=== PATIENT | male | born 1965 | race Caucasian/White ===

== ENCOUNTER 2018-03-03 21:18 | Emergency (ER) | payer BC ==
[2018-03-03 22:00] LABS: MUDS CUTOFF CONCENTRATIONS CUTOFF CONC BELOW:
[2018-03-03 22:22] LABS: AMPHETAMINE SCREEN,URINE NEGATIVE (NEGATIVE); BENZODIAZEPINES SCREEN, URINE NEGATIVE (NEGATIVE); COCAINE SCREEN URINE NEGATIVE (NEGATIVE); METHADONE SCREEN, URINE NEGATIVE (NEGATIVE); METHAMPHETAMINES SCREEN, URINE NEGATIVE (NEGATIVE); OPIATE SCREEN, URINE NEGATIVE (NEGATIVE); OXYCODONE SCREEN, URINE NEGATIVE (NEGATIVE); PROPOXYPHENE SCREEN, URINE NEGATIVE (NEGATIVE); TRICYCLIC ANTIDEPRESSANT,URINE NEGATIVE (NEGATIVE)
[2018-03-03] MEDS ORDERED: LORazepam 0.5 MG TABLET PO STA (22:28)
[2018-03-03] MEDS ORDERED: ONDANSETRON ODT 4 MG TABLET TL STA (22:28)
[2018-03-03 22:46] LABS: BASOPHILS # (AUTO) 0.1 10^3/uL (0.0-0.1); BASOPHILS % (AUTO) 1.3 %; HGB - HEMOGLOBIN 15.5 g/dL (14.0-18.0); LYMPHOCYTES # (AUTO) 0.7 10^3/uL (1.5-3.5); LYMPHOCYTES % (AUTO) 6.6 %; MEAN CORPUSCULAR HEMOGLOBIN 31.6 pg (27.0-31.0); MEAN CORPUSCULAR HGB CONC 34.7 g/dL (32.0-36.0); MEAN PLATELET VOLUME 7.9 fL (7.4-11.4); MONOCYTES # (AUTO) 0.7 10^3/uL (0.0-1.0); MONOCYTES % (AUTO) 6.4 %; NEUTROPHILS # (AUTO) 9.3 10^3/uL (1.5-6.6); NEUTROPHILS % (AUTO) 85.7 %; PLT - PLATELET COUNT 225 10^3/uL (130-450); RED CELL DISTRIBUTION WIDTH 14.3 % (12.0-15.0); WHITE BLOOD COUNT 10.9 x10^3/uL (4.8-10.8)
[2018-03-03 22:58] LABS: CREATININE 1.1 mg/dL (0.6-1.2)
[2018-03-04] MEDS ORDERED: diphenhydrAMINE 25 MG CAPSULE PO STA (01:17)
--- NOTE | 2018-03-04 03:21 | ED Physician Documentation ---
PD HPI MHE - Stated complaint Stated Complaint: SI - Chief complaint Chief Complaint: MHE - History obtained from History obtained from: Patient - History of Present Illness Primary symptom: Suicidal ideation, Depression Timing - onset: Today Contributing factors: Sig other, Substance abuse - ETOH Similar symptoms before: Has not had sx before Recently seen: Not recently seen - Additional information Additional information: Patient is a 52 year old male who has a history of anxiety who is presenting to the emergency department for suicidal ideation. Patient reports that it is about a month away from the year anniversary of when his son commited suicide. Patient states that he has been self medicating with alcohol and tonight he was worried that he might kill himself. patient states that his plan was to use a gun. Review of Systems Constitutional: denies: Fever, Chills Eyes: reports: Reviewed and negative Ears: reports: Reviewed and negative Nose: reports: Reviewed and negative Throat: reports: Reviewed and negative Cardiac: reports: Reviewed and negative Respiratory: reports: Reviewed and negative GI: reports: Reviewed and negative : reports: Reviewed and negative Musculoskeletal: reports: Reviewed and negative Psychiatric: reports: Depressed, Suicidal, Anxiety. denies: Homicidal Immunocompromised: denies: Immunocompromised PD PAST MEDICAL HISTORY - Past Medical History Past Medical History: Yes Psych: Anxiety - Past Surgical History Past Surgical History: Yes HEENT: Tonsil/Adenoidectomy - Allergies Allergies/Adverse Reactions: Allergies Allergy/AdvReac Type Severity Reaction Status Date / Time paroxetine [From Paxil] Allergy Unknown Verified 03/03/18 22:35 - Social History Does the pt smoke?: No Smoking Status: Never smoker Does the pt drink ETOH?: Yes ETOH Use: Beer Does the pt have substance abuse?: No - Immunizations Immunizations: TDAP current <10years - POLST Patient has POLST: No PD ED PE NORMAL - Vitals Vital signs reviewed: Yes - General General: Alert and oriented X 3 - HEENT HEENT: Atraumatic - Neck Neck: Supple, no meningeal sign - Cardiac Cardiac: RRR - Respiratory Respiratory: No respiratory distress - Abdomen Abdomen: Non distended - Derm Derm: Normal color - Extremities Extremities: No deformity - Neuro Neuro: Alert and oriented X 3, No motor deficit, Normal speech Eye Opening: Spontaneous PD ED PE EXPANDED - Psych Psych: Depressed, Suicidal, Tearful, Anxious Results - Vitals Vitals: Vital Signs - 24 hr 03/03/18 03/03/18 03/04/18 21:33 22:28 02:21 Temperature 36.7 C Heart Rate 100 102 H 88 Respiratory 18 18 17 Rate Blood Pressure 150/107 H 142/68 H 160/81 H O2 Saturation 100 99 99 Oxygen O2 Source Room air - Labs Labs: Laboratory Tests 03/03/18 03/03/18 03/03/18 21:46 22:30 22:30 WBC 10.9 H RBC 4.90 Hgb 15.5 Hct 44.5 MCV 91.0 MCH 31.6 H MCHC 34.7 RDW 14.3 Plt Count 225 MPV 7.9 Neut # 9.3 H Lymph # 0.7 L [place] # 0.7 Eos # 0.0 Baso # 0.1 Absolute Nucleated RBC 0.00 Nucleated RBC % 0.0 Sodium 134 L Potassium 3.9 Chloride 93 L Carbon Dioxide 21 Anion Gap 20.0 H BUN 18 Creatinine 1.1 Estimated GFR (MDRD) 71 L Glucose 204 H Calcium 9.0 Urine Opiates Screen NEGATIVE Ur Oxycodone Screen NEGATIVE Urine Methadone Screen NEGATIVE Ur Propoxyphene Screen NEGATIVE Ur Barbiturates Screen NEGATIVE Ur Tricyclics Screen NEGATIVE Ur Phencyclidine Scrn NEGATIVE Ur Amphetamine Screen NEGATIVE U Methamphetamines Scrn NEGATIVE U Benzodiazepines Scrn NEGATIVE Urine Cocaine Screen NEGATIVE U Cannabinoids Screen NEGATIVE Ethyl Alcohol 8.5 PD MEDICAL DECISION MAKING - ED course Complexity details: reviewed old records, reviewed results, re-evaluated patient , considered differential, d/w patient ED course: Patient was seen and examined at beside. labs were drawn and urine was collected. Patient was treated with zofran and ativan for nausea and anxiety. Patient's blood work was unremarkable. Patient did state that he needed help sleeping and was given benadryl 50mg. Patient was medically cleared and voluntary. Patient was signed over to Dr. Keene pending social work evaluation. Departure - Departure Clinical Impression: Depression, Suicidal ideation
[2018-03-04] MEDS ORDERED: ONDANSETRON ODT 4 MG TABLET TL STA (12:31)
[2018-03-04 12:55] VITALS: BP 104/62
--- NOTE | 2018-03-04 14:13 | ED Physician Documentation ---
PD HPI MHE - Stated complaint Stated Complaint: SI - Chief complaint Chief Complaint: MHE PD PAST MEDICAL HISTORY - Past Medical History Past Medical History: Yes Psych: Anxiety - Past Surgical History Past Surgical History: Yes HEENT: Tonsil/Adenoidectomy - Present Medications Home Medications: Ambulatory Orders Medication Instructions Recorded Confirmed Ondansetron Odt [Zofran] 4 mg TL Q6H PRN #10 tablet 03/04/18 - Allergies Allergies/Adverse Reactions: Allergies Allergy/AdvReac Type Severity Reaction Status Date / Time paroxetine [From Paxil] Allergy Unknown Verified 03/03/18 22:35 - Social History Does the pt smoke?: No Smoking Status: Never smoker Does the pt drink ETOH?: Yes ETOH Use: Beer Does the pt have substance abuse?: No - Immunizations Immunizations: TDAP current <10years - POLST Patient has POLST: No Results - Vitals Vitals: Vital Signs - 24 hr 03/03/18 03/03/18 03/04/18 21:33 22:28 02:21 Temperature 36.7 C Heart Rate 100 102 H 88 Respiratory 18 18 17 Rate Blood Pressure 150/107 H 142/68 H 160/81 H O2 Saturation 100 99 99 03/04/18 03/04/18 03/04/18 06:56 11:48 12:51 Temperature 36.5 C Heart Rate 90 99 68 Respiratory 16 18 15 Rate Blood Pressure 150/97 H 182/105 H 104/62 O2 Saturation 97 99 100 Oxygen O2 Source Room air - Labs Labs: Laboratory Tests 03/03/18 03/03/18 03/03/18 21:46 22:30 22:30 WBC 10.9 H RBC 4.90 Hgb 15.5 Hct 44.5 MCV 91.0 MCH 31.6 H MCHC 34.7 RDW 14.3 Plt Count 225 MPV 7.9 Neut # 9.3 H Lymph # 0.7 L [place] # 0.7 Eos # 0.0 Baso # 0.1 Absolute Nucleated RBC 0.00 Nucleated RBC % 0.0 Sodium 134 L Potassium 3.9 Chloride 93 L Carbon Dioxide 21 Anion Gap 20.0 H BUN 18 Creatinine 1.1 Estimated GFR (MDRD) 71 L Glucose 204 H Calcium 9.0 Urine Opiates Screen NEGATIVE Ur Oxycodone Screen NEGATIVE Urine Methadone Screen NEGATIVE Ur Propoxyphene Screen NEGATIVE Ur Barbiturates Screen NEGATIVE Ur Tricyclics Screen NEGATIVE Ur Phencyclidine Scrn NEGATIVE Ur Amphetamine Screen NEGATIVE U Methamphetamines Scrn NEGATIVE U Benzodiazepines Scrn NEGATIVE Urine Cocaine Screen NEGATIVE U Cannabinoids Screen NEGATIVE Ethyl Alcohol 8.5 Departure - Departure Disposition: 01 Home, Self Care Clinical Impression: Suicidal ideation, Prolonged grief reaction Depression Qualifiers: Depression Type: reactive depression Qualified Code(s): F32.9 - Major depressive disorder, single episode, unspecified Condition: Stable Instructions: ED Stress React, ED Grief Reaction Follow-Up: [facility] [Provider Group] Prescriptions: Ondansetron Odt [Zofran] 4 mg TL Q6H PRN #10 tablet PRN Reason: Nausea / Vomiting
== END 2018-03-04 14:30 | disposition home or self-care (01) ==
LOC: ED 21:18
DX: R45.851 Suicidal ideations (principal); F32.9 Major depressive disorder, single episode, unspecified; F43.29 Adjustment disorder with other symptoms
CPT/HCPCS: 36415; 80048; 80306; 80320; 85025; 99283; A9270; Q0162

== ENCOUNTER 2019-04-19 21:37 | Outpatient (CLI) | payer OTHER | END 2019-04-19 21:38 | disposition critical access hospital (66) | LOC: EMS 21:37 | PROVIDERS: ATTEND Surgery | DX: R53.1 Weakness (principal); S09.90XA Unspecified injury of head, initial encounter; R45.851 Suicidal ideations; Z72.89 Other problems related to lifestyle; W19.XXXA Unspecified fall, initial encounter | CPT/HCPCS: A0425; A0429 ==

== ENCOUNTER 2019-04-19 21:55 | Emergency (ER) | payer BC, OTHER ==
[2019-04-19] MEDS ORDERED: TETANUS/DIPHTHERIA/PERTUSSIS 0.5 ML SYRINGE IM ONE (22:07)
[2019-04-19] MEDS ORDERED: FOLIC ACID INJ 1 MG, THIAMINE INJ 100 MG, MAGNESIUM SULFATE 2 GM, MULTIVITAMIN 10 ML in... IV STA ×5 (22:08)
--- NOTE | 2019-04-19 22:11 | ED Physician Documentation ---
History of Present Illness - Stated complaint Stated Complaint: WEAK, ETOH/ - History obtained from History obtained from: Patient - Additonal information Additional information: Patient is a 53-year-old male with history of chronic alcohol use presenting with alcohol intoxication and suicidal ideation. Patient admits to chronic alcohol use had issues with withdrawal in the past, although nonspecific. and states that he has patient denies other recreational drug use. Patient states that over the past several days he has drank "a ton". Patient also admits to suicidal thoughts, specifically cutting himself. Patient notes that his s tressors include familial issues. Patient's son committed suicide several years ago. He and his other son have a strained relationship as he left his son previously. Patient does live with his girlfriend locally and per report, has recently attended an alcohol rehab. Patient has dried blood and superficial wound to his head and reports falling, but denies other details of the incident or loss of consciousness. Patient otherwise denies complaints including headache, vision changes, chest pain, abdominal pain, vomiting, urine or stool changes. No other improving or worsening factors noted. Review of Systems Constitutional: denies: Fever Eyes: denies: Loss of vision Cardiac: denies: Chest pain / pressure Respiratory: denies: Dyspnea Neurologic: reports: Head injury PD PAST MEDICAL HISTORY - Past Medical History Past Medical History: Yes Cardiovascular: Hypertension Psych: Anxiety, Other (Substance abuse) - Past Surgical History Past Surgical History: Yes HEENT: Tonsil/Adenoidectomy - Present Medications Home Medications: Ambulatory Orders Medication Instructions Recorded Confirmed Ondansetron Odt [Zofran] 4 mg TL Q6H PRN #10 tablet 03/04/18 - Allergies Allergies/Adverse Reactions: Allergies Allergy/AdvReac Type Severity Reaction Status Date / Time paroxetine [From Paxil] Allergy Unknown Verified 03/03/18 22:35 - Social History Does the pt smoke?: No Smoking Status: Never smoker Does the pt drink ETOH?: Yes Does the pt have substance abuse?: No - Immunizations Immunizations: TDAP current <10years - POLST Patient has POLST: No PD ED PE NORMAL - Vitals Vital signs reviewed: Yes - General General: Alert and oriented X 3, No acute distress, Well developed/nourished, Other (Tearful, Smells of alcohol) - HEENT HEENT: PERRL, EOMI (No nystagmus. Gross visual acuity intact.). No: Atraumatic (Pinpoint superficial laceration to midline forehead with surrounding dried blood. Otherwise atraumatic with no appreciable swelling or ecchymosis, raccoon eyes, brunson signs, facial bone instability or tenderness.), Moist mucous membranes - Neck Neck: Supple, no meningeal sign, No bony TTP - Cardiac Cardiac: RRR, No murmur - Respiratory Respiratory: No respiratory distress, Clear bilaterally - Abdomen Abdomen: Soft, Non tender, Non distended - Derm Derm: Normal color, Warm and dry, No rash - Extremities Extremities: No deformity, No tenderness to palpate - Neuro Neuro: Alert and oriented X 3, No motor deficit, No sensory deficit - Psych Psych: Other (Intoxicated, tearful, admits to suicidal ideation) Results - Vitals Vitals: Vital Signs - 24 hr 04/19/19 04/20/19 04/20/19 21:59 00:26 04:35 Temperature 37.2 C 37.4 C 36.7 C Heart Rate 97 88 97 Respiratory 18 14 16 Rate Blood Pressure 173/112 H 153/95 H 151/108 H O2 Saturation 99 96 97 Oxygen O2 Source Room air - Labs Labs: Laboratory Tests 04/19/19 04/19/19 04/19/19 22:16 22:16 22:16 WBC 7.2 RBC 5.76 Hgb 17.4 Hct 50.6 MCV 87.9 MCH 30.1 MCHC 34.3 RDW 14.6 Plt Count 301 MPV 7.4 Neut # (Auto) 3.4 Lymph # (Auto) 3.0 [place] # (Auto) 0.6 Eos # (Auto) 0.1 Baso # (Auto) 0.0 Absolute Nucleated RBC 0.01 Nucleated RBC % 0.1 Sodium 142 Potassium 3.5 Chloride 95 L Carbon Dioxide 31 Anion Gap 16.0 H BUN 8 Creatinine 1.0 Estimated GFR (MDRD) 78 L Glucose 133 H Calcium 8.9 Total Bilirubin 0.9 AST 26 ALT 20 Alkaline Phosphatase 114 Total Protein 8.0 Albumin 4.5 Globulin 3.5 Albumin/Globulin Ratio 1.3 Lipase 29 TSH 2.52 Urine Color Urine Clarity Urine pH Ur Specific [place] Urine Protein Urine Glucose (UA) Urine Ketones Urine Occult Blood Urine Nitrite Urine Bilirubin Urine Urobilinogen Ur Leukocyte Esterase Urine RBC Urine WBC Ur Squamous Epith Cells Urine Bacteria Ur Microscopic Review Urine Culture Comments Salicylates < 6.0 Urine Opiates Screen Ur Oxycodone Screen Urine Methadone Screen Ur Propoxyphene Screen Acetaminophen < 10 L Ur Barbiturates Screen Ur Tricyclics Screen Ur Phencyclidine Scrn Ur Amphetamine Screen U Methamphetamines Scrn U Benzodiazepines Scrn Urine Cocaine Screen U Cannabinoids Screen Ethyl Alcohol 355.1 04/20/19 01:00 WBC RBC Hgb Hct MCV MCH MCHC RDW Plt Count MPV Neut # (Auto) Lymph # (Auto) [place] # (Auto) Eos # (Auto) Baso # (Auto) Absolute Nucleated RBC Nucleated RBC % Sodium Potassium Chloride Carbon Dioxide Anion Gap BUN Creatinine Estimated GFR (MDRD) Glucose Calcium Total Bilirubin AST ALT Alkaline Phosphatase Total Protein Albumin Globulin Albumin/Globulin Ratio Lipase TSH Urine Color YELLOW Urine Clarity CLEAR Urine pH 7.0 Ur Specific [place] 1.010 Urine Protein 100 H Urine Glucose (UA) 100 H Urine Ketones NEGATIVE Urine Occult Blood MODERATE H Urine Nitrite NEGATIVE Urine Bilirubin NEGATIVE Urine Urobilinogen 0.2 (NORMAL) Ur Leukocyte Esterase NEGATIVE Urine RBC 6-10 H Urine WBC 0-3 Ur Squamous Epith Cells RARE Squamous Urine Bacteria None Seen Ur Microscopic Review INDICATED Urine Culture Comments NOT INDICATED Salicylates Urine Opiates Screen NEGATIVE Ur Oxycodone Screen NEGATIVE Urine Methadone Screen NEGATIVE Ur Propoxyphene Screen NEGATIVE Acetaminophen Ur Barbiturates Screen NEGATIVE Ur Tricyclics Screen NEGATIVE Ur Phencyclidine Scrn NEGATIVE Ur Amphetamine Screen NEGATIVE U Methamphetamines Scrn NEGATIVE U Benzodiazepines Scrn NEGATIVE Urine Cocaine Screen NEGATIVE U Cannabinoids Screen NEGATIVE Ethyl Alcohol PD MEDICAL DECISION MAKING - ED course Complexity details: reviewed old records, reviewed results, re-evaluated patient, considered differential, d/w patient ED course: Patient presenting with alcohol intoxication and suicidal ideation. Patient is agreeable to mental health evaluation and is understanding that this process will likely require him to stay in the ED overnight to receive his evaluation in the morning when he is more sober. Patient also has evidence of trauma to his forehead raising concern for skull fracture, intracranial bleed, concussion and closed head injury. Obtained CT head to further rule out, which returned unremarkable. Wound appropriately cleaned and does not require closure. Tetanus updated. Remainder physical exam otherwise unremarkable with no obvious signs of withdrawal, other toxidrome, systemic illness, neurological deficit. Patient also denies other medical complaints at this time. Screening lab work obtained which returned relatively unremarkable. Toxicology returned with evidence of significantly elevated ethanol level. UA relatively unremarkable. Social work consulted and will likely evaluate patient in the morning. Patient also received banana bag, as well as Zofran for nausea unable to tolerate oral intake. Patient asked both EMS and repeatedly asked ED staff for Ativan as he was feeling that he may withdrawal, however, patient continued to not exhibit withdrawal symptoms in the ED and given his elevated ethanol level, feel this is unlikely. He will continue to be monitored and if necessary, will receive appropriate medications. Patient signed out to oncoming ED staff approximately 7 AM. Disposition per mental health evaluation. Departure - Departure Clinical Impression: Suicidal ideation Alcohol intoxication Qualifiers: Complication of substance-induced condition: uncomplicated Qualified Code(s): F10.920 - Alcohol use, unspecified with intoxication, uncomplicated Condition: Fair
[2019-04-19 22:21] LABS: BASOPHILS % (AUTO) 0.6 %; EOSINOPHILS # (AUTO) 0.1 10^3/uL (0.0-0.7); HGB - HEMOGLOBIN 17.4 g/dL (14.0-18.0); LYMPHOCYTES % (AUTO) 42.3 %; MEAN CORPUSCULAR HEMOGLOBIN 30.1 pg (27.0-31.0); MEAN CORPUSCULAR HGB CONC 34.3 g/dL (32.0-36.0); MEAN CORPUSCULAR VOLUME 87.9 fL (80.0-94.0); MEAN PLATELET VOLUME 7.4 fL (7.4-11.4); MONOCYTES # (AUTO) 0.6 10^3/uL (0.0-1.0); MONOCYTES % (AUTO) 8.6 %; NEUTROPHILS # (AUTO) 3.4 10^3/uL (1.5-6.6); NEUTROPHILS % (AUTO) 47.5 %; PLT - PLATELET COUNT 301 10^3/uL (130-450); RED BLOOD COUNT 5.76 10^6/uL (4.70-6.10); RED CELL DISTRIBUTION WIDTH 14.6 % (12.0-15.0); WHITE BLOOD COUNT 7.2 x10^3/uL (4.8-10.8)
[2019-04-19] MEDS ORDERED: THIAMINE 100 MG/1 ML 2 ML MDV ONE (22:36)
[2019-04-19 22:37] LABS: ACETAMINOPHEN < 10 ug/mL (10-30); ALBUMIN 4.5 g/dL (3.2-5.5); ALBUMIN/GLOBULIN RATIO 1.3 (1.0-2.2); ALKALINE PHOSPHATASE 114 IU/L (42-121); ALT ALANINE AMINOTRANSFERASE 20 IU/L (10-60); AST ASPARTATE AMINOTRANSFERASE 26 IU/L (10-42); BILIRUBIN,TOTAL 0.9 mg/dL (0.2-1.0); BUN - BLOOD UREA NITROGEN 8 mg/dL (6-20); CALCIUM 8.9 mg/dL (8.5-10.3); CARBON DIOXIDE - CO2 31 mmol/L (21-32); CHLORIDE 95 mmol/L (101-111); GFR - MDRD 78 (>89); GLUCOSE 133 mg/dL (70-100); LIPASE 29 U/L (22-51); SALICYLATE < 6.0 mg/dL; SODIUM 142 mmol/L (135-145)
--- NOTE | 2019-04-19 22:51 | CT Report ---
Reason: fall while intoxicated and struck head Procedure Date: 04/19/2019 Accession Number: [id number] / [id number] Procedure: CT - HEAD WO CPT Code: FULL RESULT: EXAM: CT HEAD EXAM DATE: 04/19/2019 10:29 PM. CLINICAL HISTORY: Fall while intoxicated and struck head. COMPARISON: None. TECHNIQUE: Multiaxial CT images were obtained from the foramen magnum to the vertex. Reformats: Sagittal and coronal. IV contrast: None. In accordance with CT protocol optimization, one or more of the following dose reduction techniques were utilized for this exam: automated exposure control, adjustment of mA and/or KV based on patient size, or use of iterative reconstructive technique. FINDINGS: Parenchyma: No intraparenchymal hemorrhage. No evidence of mass, midline shift, or CT findings of infarction. Barker-white differentiation is distinct. Extraaxial Spaces: Normal for age. No subdural or epidural collections identified. Ventricles: Normal in size and position. Sinuses and Orbits: The left maxillary sinus is nearly completely opacified. There is moderate to severe circumferential mucosal thickening throughout the right maxillary sinus. There is mild to moderate mucosal thickening in the remaining sinuses. Mastoid air cells are clear. Orbits are unremarkable. Bones: No evidence of fracture or calvarial defect. Other: None. IMPRESSION: 1. No acute intracranial abnormality. 2. No skull fracture. 3. Sinusitis with complete opacification of left maxillary sinus and moderate to severe mucosal thickening throughout right maxillary sinus. There is mild to moderate scattered mucosal thickening in the remaining sinuses. RADIA
[2019-04-20 01:12] LABS: MUDS CUTOFF CONCENTRATIONS CUTOFF CONC BELOW:
[2019-04-20 01:17] LABS: BILIRUBIN,URINE NEGATIVE (NEGATIVE); GLUCOSE, URINE (UA) 100 mg/dL (NEGATIVE); KETONES,URINE (UA) NEGATIVE (NEGATIVE); LEUKOCYTE ESTERASE, URINE NEGATIVE (NEGATIVE); NITRITE,URINE NEGATIVE (NEGATIVE); OCCULT BLOOD,URINE MODERATE (NEGATIVE); PROTEIN,URINE 100 mg/dL (NEGATIVE); UROBILINOGEN,URINE 0.2 (NORMAL) E.U./dL (NORMAL)
[2019-04-20 01:42] LABS: CLARITY,URINE CLEAR (CLEAR)
[2019-04-20 01:44] LABS: AMPHETAMINE SCREEN,URINE NEGATIVE (NEGATIVE); BACTERIA,URINE None Seen /HPF (None Seen); BENZODIAZEPINES SCREEN, URINE NEGATIVE (NEGATIVE); COCAINE SCREEN URINE NEGATIVE (NEGATIVE); METHADONE SCREEN, URINE NEGATIVE (NEGATIVE); METHAMPHETAMINES SCREEN, URINE NEGATIVE (NEGATIVE); OPIATE SCREEN, URINE NEGATIVE (NEGATIVE); OXYCODONE SCREEN, URINE NEGATIVE (NEGATIVE); PROPOXYPHENE SCREEN, URINE NEGATIVE (NEGATIVE); SQUAMOUS EPITHELIAL CELL,UR RARE Squamous (<= Few); TRICYCLIC ANTIDEPRESSANT,URINE NEGATIVE (NEGATIVE)
[2019-04-20] MEDS ORDERED: ONDANSETRON 4 MG/2 ML VIAL IVP STA (05:20)
[2019-04-20] MEDS ORDERED: LORazepam 1 MG TABLET PO STA ×2 (07:13→11:43)
--- NOTE | 2019-04-20 11:42 | ED Physician Documentation ---
History of Present Illness - Stated complaint Stated Complaint: WEAK, ETOH/ - Chief complaint Chief Complaint: MHE - History obtained from History obtained from: Patient - History of Present Illness Timing: Last night - Additonal information Additional information: 53-year-old male with a remote event 2 years ago of his son committed suicide by gunfire has become suicidal while he was intoxicated. He states that he is no longer suicidal and that he has no intentions of ever acting on that. He is having some trouble with continued grieving and alcoholism. PD PAST MEDICAL HISTORY - Past Medical History Past Medical History: Yes Cardiovascular: Hypertension Psych: Anxiety, Other (Substance abuse) - Past Surgical History Past Surgical History: Yes HEENT: Tonsil/Adenoidectomy - Present Medications Home Medications: Ambulatory Orders Medication Instructions Recorded Confirmed Ondansetron Odt [Zofran] 4 mg TL Q6H PRN #10 tablet 03/04/18 Lorazepam [Ativan] 1 mg PO Q6HR PRN #20 tablet 04/20/19 - Allergies Allergies/Adverse Reactions: Allergies Allergy/AdvReac Type Severity Reaction Status Date / Time paroxetine [From Paxil] Allergy Unknown Verified 03/03/18 22:35 - Social History Does the pt smoke?: No Smoking Status: Never smoker Does the pt drink ETOH?: Yes Does the pt have substance abuse?: No - Immunizations Immunizations: TDAP current <10years - POLST Patient has POLST: No PD ED PE NORMAL - Vitals Vital signs reviewed: Yes (hypertensive) - General General: Alert and oriented X 3, No acute distress, Well developed/nourished - HEENT HEENT: Other (brusing to the forehead) Results - Vitals Vitals: Vital Signs - 24 hr 04/19/19 04/20/19 04/20/19 21:59 00:26 04:35 Temperature 37.2 C 37.4 C 36.7 C Heart Rate 97 88 97 Respiratory 18 14 16 Rate Blood Pressure 173/112 H 153/95 H 151/108 H O2 Saturation 99 96 97 04/20/19 09:51 Temperature Heart Rate 107 H Respiratory 14 Rate Blood Pressure 146/92 H O2 Saturation 97 Oxygen O2 Source Room air - Labs Labs: Laboratory Tests 04/19/19 04/19/19 04/19/19 22:16 22:16 22:16 WBC 7.2 RBC 5.76 Hgb 17.4 Hct 50.6 MCV 87.9 MCH 30.1 MCHC 34.3 RDW 14.6 Plt Count 301 MPV 7.4 Neut # (Auto) 3.4 Lymph # (Auto) 3.0 [place] # (Auto) 0.6 Eos # (Auto) 0.1 Baso # (Auto) 0.0 Absolute Nucleated RBC 0.01 Nucleated RBC % 0.1 Sodium 142 Potassium 3.5 Chloride 95 L Carbon Dioxide 31 Anion Gap 16.0 H BUN 8 Creatinine 1.0 Estimated GFR (MDRD) 78 L Glucose 133 H Calcium 8.9 Total Bilirubin 0.9 AST 26 ALT 20 Alkaline Phosphatase 114 Total Protein 8.0 Albumin 4.5 Globulin 3.5 Albumin/Globulin Ratio 1.3 Lipase 29 TSH 2.52 Urine Color Urine Clarity Urine pH Ur Specific [place] Urine Protein Urine Glucose (UA) Urine Ketones Urine Occult Blood Urine Nitrite Urine Bilirubin Urine Urobilinogen Ur Leukocyte Esterase Urine RBC Urine WBC Ur Squamous Epith Cells Urine Bacteria Ur Microscopic Review Urine Culture Comments Salicylates < 6.0 Urine Opiates Screen Ur Oxycodone Screen Urine Methadone Screen Ur Propoxyphene Screen Acetaminophen < 10 L Ur Barbiturates Screen Ur Tricyclics Screen Ur Phencyclidine Scrn Ur Amphetamine Screen U Methamphetamines Scrn U Benzodiazepines Scrn Urine Cocaine Screen U Cannabinoids Screen Ethyl Alcohol 355.1 04/20/19 01:00 WBC RBC Hgb Hct MCV MCH MCHC RDW Plt Count MPV Neut # (Auto) Lymph # (Auto) [place] # (Auto) Eos # (Auto) Baso # (Auto) Absolute Nucleated RBC Nucleated RBC % Sodium Potassium Chloride Carbon Dioxide Anion Gap BUN Creatinine Estimated GFR (MDRD) Glucose Calcium Total Bilirubin AST ALT Alkaline Phosphatase Total Protein Albumin Globulin Albumin/Globulin Ratio Lipase TSH Urine Color YELLOW Urine Clarity CLEAR Urine pH 7.0 Ur Specific [place] 1.010 Urine Protein 100 H Urine Glucose (UA) 100 H Urine Ketones NEGATIVE Urine Occult Blood MODERATE H Urine Nitrite NEGATIVE Urine Bilirubin NEGATIVE Urine Urobilinogen 0.2 (NORMAL) Ur Leukocyte Esterase NEGATIVE Urine RBC 6-10 H Urine WBC 0-3 Ur Squamous Epith Cells RARE Squamous Urine Bacteria None Seen Ur Microscopic Review INDICATED Urine Culture Comments NOT INDICATED Salicylates Urine Opiates Screen NEGATIVE Ur Oxycodone Screen NEGATIVE Urine Methadone Screen NEGATIVE Ur Propoxyphene Screen NEGATIVE Acetaminophen Ur Barbiturates Screen NEGATIVE Ur Tricyclics Screen NEGATIVE Ur Phencyclidine Scrn NEGATIVE Ur Amphetamine Screen NEGATIVE U Methamphetamines Scrn NEGATIVE U Benzodiazepines Scrn NEGATIVE Urine Cocaine Screen NEGATIVE U Cannabinoids Screen NEGATIVE Ethyl Alcohol PD MEDICAL DECISION MAKING - ED course Complexity details: considered differential, d/w patient ED course: 53-year-old alcoholic male with SI while he was intoxicated is no longer intoxicated and is no longer suicidal he has met with social work and resources have been provided for alcohol and counseling. I will provide resource for the patient for a follow-up with primary care doctor for his hypertension and medical needs. The patient is in agreement with the plan and he did get some benefit with the use of Ativan. Departure - Departure Disposition: 01 Home, Self Care Clinical Impression: Suicidal ideation Alcohol intoxication Qualifiers: Complication of substance-induced condition: uncomplicated Qualified Code(s): F10.920 - Alcohol use, unspecified with intoxication, uncomplicated Condition: Fair Instructions: ED Stress React, ED Alcohol Intoxication Follow-Up: [facility] [Provider Group] Prescriptions: Lorazepam [Ativan] 1 mg PO Q6HR PRN #20 tablet PRN Reason: Anxiety
[2019-04-20 11:44] VITALS: BP 157/96
== END 2019-04-20 11:55 | disposition home or self-care (01) ==
LOC: EDUNIT# → ED 21:55
DX: F10.220 Alcohol dependence with intoxication, uncomplicated (principal); R45.851 Suicidal ideations; S01.81XA Laceration without foreign body of other part of head, initial encounter; W19.XXXA Unspecified fall, initial encounter; Z23 Encounter for immunization; I10 Essential (primary) hypertension; R11.0 Nausea
CPT/HCPCS: 36415; 70450; 80320; 80329; 81001; 83690; 90471; 90715; 96365; 96366; 96375; 99284; 99285; J3411; J8499; 80053; 80306; 80307; 81003; 84443; 85025; 87086; 96372

== ENCOUNTER 2019-04-22 07:06 | Emergency (ER) | payer OTHER ==
[2019-04-22 07:29] VITALS: BP 170/119
--- NOTE | 2019-04-22 07:36 | ED Physician Documentation ---
History of Present Illness - Stated complaint Stated Complaint: work note - Chief complaint Chief Complaint: General - History obtained from History obtained from: Patient - Additonal information Additional information: The patient is a 53-year-old male who presents requesting a note authorizing return to work. He was seen here in the emergency department 3 days ago with alcohol intoxication and associated suicidal ideation. He was observed in the emergency department overnight and underwent mental health evaluation when sober the next day. He was subsequently released for outpatient counseling. He now states his employer wants a return to work note before he can return to work. Review of Systems Constitutional: denies: Fever Nose: denies: Congestion Cardiac: denies: Chest pain / pressure Respiratory: denies: Dyspnea, Cough GI: denies: Abdominal Pain, Nausea, Vomiting Skin: denies: Rash Musculoskeletal: denies: Back pain, Extremity pain Neurologic: denies: Headache Psychiatric: reports: Depressed. denies: Suicidal, Delusions, Anxiety PD PAST MEDICAL HISTORY - Past Medical History Past Medical History: Yes Cardiovascular: Hypertension Endocrine/Autoimmune: None Psych: Anxiety, Other - Past Surgical History Past Surgical History: Yes HEENT: Tonsil/Adenoidectomy - Present Medications Home Medications: Ambulatory Orders Medication Instructions Recorded Confirmed Ondansetron Odt [Zofran] 4 mg TL Q6H PRN #10 tablet 03/04/18 Lorazepam [Ativan] 1 mg PO Q6HR PRN #20 tablet 04/20/19 - Allergies Allergies/Adverse Reactions: Allergies Allergy/AdvReac Type Severity Reaction Status Date / Time paroxetine [From Paxil] Allergy Unknown Verified 03/03/18 22:35 - Social History Does the pt smoke?: No Smoking Status: Never smoker Does the pt drink ETOH?: Yes Does the pt have substance abuse?: No - Immunizations Immunizations: TDAP current <10years - POLST Patient has POLST: No PD ED PE NORMAL - Vitals Vital signs reviewed: Yes (Hypertensive) - General General: Alert and oriented X 3, Well developed/nourished - HEENT HEENT: PERRL, EOMI, Other (Healing abrasion on left side of the forehead.) - Neck Neck: No bony TTP - Cardiac Cardiac: RRR - Respiratory Respiratory: No respiratory distress, Clear bilaterally - Abdomen Abdomen: Soft, Non tender - Back Back: No spinal TTP - Derm Derm: No rash - Extremities Extremities: No edema, No calf tenderness / cord - Neuro Neuro: Alert and oriented X 3, No motor deficit, No sensory deficit, Normal speech - Psych Psych: Normal affect Results - Vitals Vitals: Vital Signs - 24 hr 04/22/19 04/22/19 07:19 07:24 Temperature 36 C L 36.9 C Heart Rate 76 106 H Respiratory 16 16 Rate Blood Pressure 164/115 H 170/119 H O2 Saturation 99 98 Oxygen O2 Source Room air PD MEDICAL DECISION MAKING - ED course Complexity details: reviewed old records, considered differential, d/w patient ED course: The patient's presentation is an encounter for medical screening exam for return to work note. I see no physical evidence to suggest medical inability to perform work duties. He is discharged with a work note as requested. Departure - Departure Disposition: 01 Home, Self Care Clinical Impression: Encounter for medical screening examination Condition: Stable Follow-Up: [facility] [Provider Group] Forms: Activity restrictions
== END 2019-04-22 07:50 | disposition home or self-care (01) ==
LOC: ED 07:06
DX: Z02.89 Encounter for other administrative examinations (principal); F32.9 Major depressive disorder, single episode, unspecified; I10 Essential (primary) hypertension
CPT/HCPCS: 99281; 99283

== ENCOUNTER 2019-05-10 08:00 | Outpatient (CLI) | payer OTHER ==
[2019-05-10 13:46] LABS: BASOPHILS % (AUTO) 0.9 %; EOSINOPHILS # (AUTO) 0.2 10^3/uL (0.0-0.7); EOSINOPHILS % (AUTO) 3.9 %; HGB - HEMOGLOBIN 15.5 g/dL (14.0-18.0); LYMPHOCYTES # (AUTO) 1.9 10^3/uL (1.5-3.5); LYMPHOCYTES % (AUTO) 34.4 %; MEAN CORPUSCULAR HEMOGLOBIN 30.5 pg (27.0-31.0); MEAN CORPUSCULAR HGB CONC 33.9 g/dL (32.0-36.0); MEAN CORPUSCULAR VOLUME 89.9 fL (80.0-94.0); MEAN PLATELET VOLUME 8.7 fL (7.4-11.4); MONOCYTES # (AUTO) 0.6 10^3/uL (0.0-1.0); MONOCYTES % (AUTO) 10.8 %; NEUTROPHILS # (AUTO) 2.7 10^3/uL (1.5-6.6); PLT - PLATELET COUNT 300 10^3/uL (130-450); RED BLOOD COUNT 5.09 10^6/uL (4.70-6.10); RED CELL DISTRIBUTION WIDTH 14.3 % (12.0-15.0); WHITE BLOOD COUNT 5.5 x10^3/uL (4.8-10.8)
[2019-05-10 14:07] LABS: % IRON SATURATION 32 % (20-50); ALBUMIN 4.6 g/dL (3.2-5.5); ALBUMIN/GLOBULIN RATIO 1.5 (1.0-2.2); ALKALINE PHOSPHATASE 73 IU/L (42-121); ALT ALANINE AMINOTRANSFERASE 17 IU/L (10-60); AST ASPARTATE AMINOTRANSFERASE 18 IU/L (10-42); BILIRUBIN,TOTAL 0.9 mg/dL (0.2-1.0); BUN - BLOOD UREA NITROGEN 21 mg/dL (6-20); CALCIUM 9.1 mg/dL (8.5-10.3); CARBON DIOXIDE - CO2 28 mmol/L (21-32); CHLORIDE 100 mmol/L (101-111); CHOL/HDL RATIO 4.1 (<5.0); CHOLESTEROL 177 mg/dL; CREATININE 1.2 mg/dL (0.6-1.2); GFR - MDRD 64 (>89); GLUCOSE 82 mg/dL (70-100); HDL CHOLESTEROL 43 mg/dL; IRON 116 ug/dL (45-182); LDL CHOLESTEROL,CALCULATED 121 mg/dL; LDL/HDL RATIO 2.8 (<3.6); SODIUM 137 mmol/L (135-145); TOTAL IRON BINDING CAPACITY 367 ug/dL (250-450); TOTAL PROTEIN 7.6 g/dL (6.7-8.2); TRANSFERRIN 262 mg/dL (180-329); VLDL CHOLESTEROL 13 mg/dL
[2019-05-11 13:01] LABS: HEPATITIS B SURFACE ANTIGEN NON-REACTIVE (NON-REACTIVE)
[2019-05-11 13:57] LABS: HEPATITIS C ANTIBODY NON-REACTIVE (NON-REACTIVE)
== END 2019-05-10 23:59 | disposition home or self-care (01) ==
LOC: LAB.N 08:00
PROVIDERS: ATTEND Physician Assistant Medical
DX: F43.21 Adjustment disorder with depressed mood (principal); F10.10 Alcohol abuse, uncomplicated; F06.4 Anxiety disorder due to known physiological condition; I10 Essential (primary) hypertension; Z00.00 Encounter for general adult medical examination without abnormal findings
CPT/HCPCS: 36415; 80053; 80061; 83540; 83721; 84153; 84443; 84466; 85025; 86317; 86704; 86709; 86803; 87340

== ENCOUNTER 2019-07-06 08:16 | Day surgery (SDC) | payer OTHER ==
[2019-07-06] MEDS ORDERED: LACTATED RINGERS 1,000 ML IV ONE (08:27)
[2019-07-06] MEDS ORDERED: MIDAZOLAM 2 MG/2 ML VIAL IVP ONE (09:25)
[2019-07-06] MEDS ORDERED: fentaNYL 250 MCG/5 ML VIAL IVP ONE (09:25)
[2019-07-06 10:37] VITALS: BP 133/97
== END 2019-07-06 08:17 | disposition home or self-care (01) ==
LOC: SDS 08:16
PROVIDERS: ATTEND Internal Medicine Gastroenterology
PROC: 0DJD8ZZ Inspection of Lower Intestinal Tract, Via Natural or Artificial Opening Endoscopic (ICD-10-PCS; principal; 2019-07-06 09:15)
DX: Z12.11 Encounter for screening for malignant neoplasm of colon (principal); I10 Essential (primary) hypertension
CPT/HCPCS: 45378; J7120

== ENCOUNTER 2019-07-17 09:45 | Outpatient (CLI) | payer OTHER ==
[2019-07-17] MEDS ORDERED: GADOBUTROL 10 MMOL/10 ML VIAL ONE (11:23)
[2019-07-17] MEDS ORDERED: GADOBUTROL 10 MMOL/10 ML VIAL IVP ONE (11:32)
--- NOTE | 2019-07-19 14:59 | MRI Report ---
Reason: SOFT TISSUE MASS, BACK Procedure Date: 07/17/2019 Accession Number: [id number] / [id number] Procedure: MRI - Chest W/WO CPT Code: FULL RESULT: EXAM: MR SCAN OF THE LEFT UPPER BACK WITHOUT AND WITH CONTRAST EXAM DATE: 07/17/2019 11:37 AM CLINICAL HISTORY: Soft tissue mass, back. COMPARISON: None. TECHNIQUE: Routine pre and postcontrast imaging. Patient received 8 mL Gadavist IV, no reaction. FINDINGS: In the area of the patient's concern, marked with MRI markers, there is a well-circumscribed mass that follows fat on all pulse sequences measuring 8.0 x 9.7 cm transversely extending for a 9.5 cm cephalocaudal extent. This is located deep to the trapezius and superficial and superior to the rhomboid major. Discrete borders. No other similar lesions seen elsewhere. With contrast, no central enhancement. Some peripheral venous structures are identified. Please note this mass also is immediately adjacent to the medial border of the scapula and there is no pressure necrosis or erosive change at this bony border. No involvement of the chest wall. IMPRESSION: 1. Focal area of concern most likely corresponds to a benign lipoma located between the trapezius, chest wall and rhomboid major. It is quite prominent measuring 8.0 x 9.7 cm transversely extending for 9.5 cm cephalocaudal extent. Some peripheral venous structures are noted. No worrisome imaging features. While this is most likely benign lipoma the size of near 10 cm is atypical. If this lesion has been present for years, it is most likely benign. If it has occurred relatively recently, more close follow-up may be needed. RADIA
== END 2019-07-17 09:46 | disposition home or self-care (01) ==
LOC: DI 09:45
PROVIDERS: ATTEND Internal Medicine Gastroenterology
DX: M79.9 Soft tissue disorder, unspecified (principal)
CPT/HCPCS: 71552; A9585

== ENCOUNTER 2019-09-06 06:45 | Outpatient (CLI) | payer SELFPAY | END 2019-09-06 06:46 | disposition critical access hospital (66) | LOC: EMS 06:45 | PROVIDERS: ATTEND Surgery | DX: R11.0 Nausea (principal); R06.6 Hiccough; Z72.89 Other problems related to lifestyle | CPT/HCPCS: A0425; A0429 ==

== ENCOUNTER 2019-09-06 07:01 | Emergency (ER) | payer SELFPAY ==
--- NOTE | 2019-09-06 07:13 | ED Physician Documentation ---
PD HPI MHE - Stated complaint Stated Complaint: MHE - History obtained from History obtained from: Patient, EMS - History of Present Illness Primary symptom: Suicidal ideation (thoughts of harming himself with a knife) Timing - onset: Chronic (worse today) Contributing factors: Substance abuse - ETOH (drank 20 ounces of vodka, reports he drinks regularly on most days when he can) Similar symptoms before: Diagnosis (hx of alcohol abuse and suicidal thoughts) Recently seen: Not recently seen - Treatment prior to arrival Treatment prior to arrival: none Review of Systems Ten Systems: 10 systems reviewed and negative Constitutional: denies: Fever Cardiac: reports: Reviewed and negative Respiratory: reports: Reviewed and negative GI: reports: Reviewed and negative Skin: reports: Reviewed and negative Musculoskeletal: reports: Reviewed and negative Neurologic: reports: Reviewed and negative Psychiatric: reports: Depressed, Suicidal. denies: Homicidal, Hallucinations, Delusions, Anxiety Immunocompromised: reports: Reviewed and negative PD PAST MEDICAL HISTORY - Past Medical History Past Medical History: Yes Cardiovascular: Hypertension Respiratory: None Endocrine/Autoimmune: None GI: None : None HEENT: Other Psych: Anxiety Musculoskeletal: None Derm: None - Past Surgical History Past Surgical History: Yes HEENT: Tonsil/Adenoidectomy - Present Medications Home Medications: Ambulatory Orders Medication Instructions Recorded Confirmed Lorazepam [Ativan] 1 mg PO Q6HR PRN #20 tablet 04/20/19 Lisinopril 20 mg PO DAILY 07/06/19 07/06/19 Ondansetron Odt [Zofran] 4 mg TL Q6H PRN #10 tablet 09/06/19 - Allergies Allergies/Adverse Reactions: Allergies Allergy/AdvReac Type Severity Reaction Status Date / Time paroxetine [From Paxil] Allergy Unknown Verified 03/03/18 22:35 - Social History Does the pt smoke?: No Smoking Status: Never smoker Does the pt drink ETOH?: Yes Does the pt have substance abuse?: No - Immunizations Immunizations: TDAP current <10years - POLST Patient has POLST: No PD ED PE NORMAL - Vitals Vital signs reviewed: Yes - General General: Alert and oriented X 3, No acute distress, Well developed/nourished - HEENT HEENT: Atraumatic, PERRL, Pharynx benign - Neck Neck: Supple, no meningeal sign - Cardiac Cardiac: RRR - Respiratory Respiratory: No respiratory distress - Abdomen Abdomen: Non distended - Male Male : Deferred - Rectal Rectal: Deferred - Derm Derm: Normal color, Warm and dry - Extremities Extremities: No deformity, Normal ROM s pain - Neuro Neuro: Alert and oriented X 3 Eye Opening: Spontaneous Motor: Obeys Commands Verbal: Oriented GCS Score: 15 - Psych Psych: Other (tearful, reports vague Suicidal ideation, possibly using a knife at home to harm himself) Results - Vitals Vitals: Vital Signs - 24 hr 09/06/19 09/06/19 09/06/19 07:10 08:38 09:38 Temperature 36.3 C L Heart Rate 92 85 Respiratory 16 18 18 Rate Blood Pressure 143/88 H 157/88 H 157/91 H O2 Saturation 98 93 94 09/06/19 09/06/19 12:50 15:24 Temperature Heart Rate 107 H 91 Respiratory 18 18 Rate Blood Pressure 153/71 H 166/92 H O2 Saturation 96 97 Oxygen O2 Source Room air - Labs Labs: Laboratory Tests 09/06/19 09/06/19 09/06/19 07:18 07:18 07:18 WBC 5.5 RBC 5.13 Hgb 16.3 Hct 47.5 MCV 92.6 MCH 31.8 H MCHC 34.3 RDW 15.1 H Plt Count 280 MPV 9.6 Neut # (Auto) 3.7 Lymph # (Auto) 1.4 L [place] # (Auto) 0.3 Eos # (Auto) 0.0 Baso # (Auto) 0.1 Absolute Nucleated RBC 0.00 Nucleated RBC % 0.0 Sodium 138 Potassium 3.8 Chloride 93 L Carbon Dioxide 21 Anion Gap 24.0 H BUN 22 H Creatinine 1.3 H Estimated GFR (MDRD) 58 L Glucose 180 H Calcium 8.5 Total Bilirubin 1.1 H AST 52 H ALT 49 Alkaline Phosphatase 100 Total Protein 7.7 Albumin 4.7 Globulin 3.0 Albumin/Globulin Ratio 1.6 Lipase 24 TSH 0.49 Urine Color Urine Clarity Urine pH Ur Specific [place] Urine Protein Urine Glucose (UA) Urine Ketones Urine Occult Blood Urine Nitrite Urine Bilirubin Urine Urobilinogen Ur Leukocyte Esterase Urine RBC Urine WBC Ur Squamous Epith Cells Urine Bacteria Ur Microscopic Review Urine Culture Comments Salicylates < 6.0 Urine Opiates Screen Ur Oxycodone Screen Urine Methadone Screen Ur Propoxyphene Screen Acetaminophen < 10 L Ur Barbiturates Screen Ur Tricyclics Screen Ur Phencyclidine Scrn Ur Amphetamine Screen U Methamphetamines Scrn U Benzodiazepines Scrn Urine Cocaine Screen U Cannabinoids Screen Ethyl Alcohol 298.0 09/06/19 09/06/19 10:07 15:39 WBC RBC Hgb Hct MCV MCH MCHC RDW Plt Count MPV Neut # (Auto) Lymph # (Auto) [place] # (Auto) Eos # (Auto) Baso # (Auto) Absolute Nucleated RBC Nucleated RBC % Sodium Potassium Chloride Carbon Dioxide Anion Gap BUN Creatinine Estimated GFR (MDRD) Glucose Calcium Total Bilirubin AST ALT Alkaline Phosphatase Total Protein Albumin Globulin Albumin/Globulin Ratio Lipase TSH Urine Color YELLOW Urine Clarity CLEAR Urine pH 5.5 Ur Specific [place] 1.025 Urine Protein 100 H Urine Glucose (UA) NEGATIVE Urine Ketones 15 H Urine Occult Blood MODERATE H Urine Nitrite NEGATIVE Urine Bilirubin NEGATIVE Urine Urobilinogen 0.2 (NORMAL) Ur Leukocyte Esterase NEGATIVE Urine RBC 0-5 Urine WBC 0-3 Ur Squamous Epith Cells RARE Squamous Urine Bacteria Rare Ur Microscopic Review INDICATED Urine Culture Comments NOT INDICATED Salicylates Urine Opiates Screen NEGATIVE Ur Oxycodone Screen NEGATIVE Urine Methadone Screen NEGATIVE Ur Propoxyphene Screen NEGATIVE Acetaminophen Ur Barbiturates Screen NEGATIVE Ur Tricyclics Screen NEGATIVE Ur Phencyclidine Scrn NEGATIVE Ur Amphetamine Screen NEGATIVE U Methamphetamines Scrn NEGATIVE U Benzodiazepines Scrn NEGATIVE Urine Cocaine Screen NEGATIVE U Cannabinoids Screen NEGATIVE Ethyl Alcohol 114.3 PD MEDICAL DECISION MAKING - ED course Complexity details: reviewed results, re-evaluated patient, considered differential, d/w patient, d/w transportation consultant ED course: 54 y/o M with hx and exam as documented, Initially arrived very intoxicated, tearful reporting hopelessness and vague SI. Now after metabolizing he is no longer suicidal. States he feels hopeful after talking to Social work and has a plan to take a bus from [place] to [place] to stay with his mother and reset his life. He is calm, coherent, ambulatory. I feel this is a reasonable disposition. Departure - Departure Disposition: 01 Home, Self Care Clinical Impression: Suicidal thoughts, Nausea Acute alcohol intoxication Qualifiers: Complication of substance-induced condition: uncomplicated Qualified Code(s): F10.920 - Alcohol use, unspecified with intoxication, uncomplicated Condition: Stable Record reviewed to determine appropriate education?: Yes Instructions: Suicide Warning Signs Self Follow-Up: Devonte,J Luis, PA-C [Primary Care Provider] - As Needed Prescriptions: Ondansetron Odt [Zofran] 4 mg TL Q6H PRN #10 tablet PRN Reason: Nausea / Vomiting
[2019-09-06 07:26] LABS: BASOPHILS # (AUTO) 0.1 10^3/uL (0.0-0.1); BASOPHILS % (AUTO) 1.1 %; EOSINOPHILS % (AUTO) 0.7 %; HGB - HEMOGLOBIN 16.3 g/dL (14.0-18.0); LYMPHOCYTES # (AUTO) 1.4 10^3/uL (1.5-3.5); LYMPHOCYTES % (AUTO) 25.9 %; MEAN CORPUSCULAR HEMOGLOBIN 31.8 pg (27.0-31.0); MEAN CORPUSCULAR HGB CONC 34.3 g/dL (32.0-36.0); MEAN CORPUSCULAR VOLUME 92.6 fL (80.0-94.0); MEAN PLATELET VOLUME 9.6 fL (7.4-11.4); MONOCYTES # (AUTO) 0.3 10^3/uL (0.0-1.0); MONOCYTES % (AUTO) 5.6 %; NEUTROPHILS # (AUTO) 3.7 10^3/uL (1.5-6.6); NEUTROPHILS % (AUTO) 66.3 %; PLT - PLATELET COUNT 280 10^3/uL (130-450); RED BLOOD COUNT 5.13 10^6/uL (4.70-6.10); RED CELL DISTRIBUTION WIDTH 15.1 % (12.0-15.0); WHITE BLOOD COUNT 5.5 x10^3/uL (4.8-10.8)
[2019-09-06 07:41] LABS: ACETAMINOPHEN < 10 ug/mL (10-30); ALBUMIN 4.7 g/dL (3.2-5.5); ALBUMIN/GLOBULIN RATIO 1.6 (1.0-2.2); ALKALINE PHOSPHATASE 100 IU/L (42-121); ALT ALANINE AMINOTRANSFERASE 49 IU/L (10-60); AST ASPARTATE AMINOTRANSFERASE 52 IU/L (10-42); BILIRUBIN,TOTAL 1.1 mg/dL (0.2-1.0); BUN - BLOOD UREA NITROGEN 22 mg/dL (6-20); CALCIUM 8.5 mg/dL (8.5-10.3); CARBON DIOXIDE - CO2 21 mmol/L (21-32); CHLORIDE 93 mmol/L (101-111); CREATININE 1.3 mg/dL (0.6-1.2); GFR - MDRD 58 (>89); GLUCOSE 180 mg/dL (70-100); LIPASE 24 U/L (22-51); SALICYLATE < 6.0 mg/dL; SODIUM 138 mmol/L (135-145); TOTAL PROTEIN 7.7 g/dL (6.7-8.2)
[2019-09-06 10:12] LABS: BILIRUBIN,URINE NEGATIVE (NEGATIVE); GLUCOSE, URINE (UA) NEGATIVE (NEGATIVE); KETONES,URINE (UA) 15 mg/dL (NEGATIVE); LEUKOCYTE ESTERASE, URINE NEGATIVE (NEGATIVE); MUDS CUTOFF CONCENTRATIONS CUTOFF CONC BELOW:; NITRITE,URINE NEGATIVE (NEGATIVE); OCCULT BLOOD,URINE MODERATE (NEGATIVE); PH,URINE 5.5 PH (5.0-7.5); PROTEIN,URINE 100 mg/dL (NEGATIVE); UROBILINOGEN,URINE 0.2 (NORMAL) E.U./dL (NORMAL)
[2019-09-06 10:14] LABS: CLARITY,URINE CLEAR (CLEAR)
[2019-09-06 10:22] LABS: AMPHETAMINE SCREEN,URINE NEGATIVE (NEGATIVE); BACTERIA,URINE Rare /HPF (None Seen); BENZODIAZEPINES SCREEN, URINE NEGATIVE (NEGATIVE); COCAINE SCREEN URINE NEGATIVE (NEGATIVE); METHADONE SCREEN, URINE NEGATIVE (NEGATIVE); METHAMPHETAMINES SCREEN, URINE NEGATIVE (NEGATIVE); OPIATE SCREEN, URINE NEGATIVE (NEGATIVE); OXYCODONE SCREEN, URINE NEGATIVE (NEGATIVE); PROPOXYPHENE SCREEN, URINE NEGATIVE (NEGATIVE); RBC,URINE 0-5 /HPF (0-5); SQUAMOUS EPITHELIAL CELL,UR RARE Squamous (<= Few); TRICYCLIC ANTIDEPRESSANT,URINE NEGATIVE (NEGATIVE)
[2019-09-06] MEDS ORDERED: ONDANSETRON ODT 4 MG TABLET TL STA (17:31)
[2019-09-06 17:50] VITALS: BP 175/98
== END 2019-09-06 17:54 | disposition home or self-care (01) ==
LOC: EDUNIT# → ED 07:01
DX: F32.9 Major depressive disorder, single episode, unspecified (principal); R45.851 Suicidal ideations; F10.920 Alcohol use, unspecified with intoxication, uncomplicated; R11.0 Nausea; I10 Essential (primary) hypertension
CPT/HCPCS: 36415; 80320; 80329; 81001; 83690; 99284; Q0162; 80053; 80306; 80307; 81003; 84443; 85025; 87086

== ENCOUNTER 2020-06-27 17:32 | Emergency (ER) | payer SELFPAY ==
--- NOTE | 2020-06-27 17:53 | ED Physician Documentation ---
PD HPI ALTERED MENTAL STATUS - Stated complaint Stated Complaint: ETOH - Chief complaint Chief Complaint: Neuro - History obtained from History obtained from: Patient, EMS - History of Present Illness Timing - onset: Today Timing - duration: Hours (unclear exact time of some altered mental status, but was currently found unresponsive on ground near [place]. Smell of alcohol on breath. EMS called and they found him responsive to tactile stimulus, but ataxic in movement and trying to walk, so brought him to ER. He claims ETOH; denies other ingestions) Timing - details: No: Still present (improved enroute but still very sleepy) Quality / character: Unresponsive Associated symptoms: No: Fever, Headache, Dyspnea, Cough Contributing factors: Intoxicated. No: Diabetic, Substance abuse Basline status: Alert and oriented X 3, Ambulatory Similar symptoms before: Diagnosis (alcohol intoxication) Review of Systems Unable to obtain: Intoxicated Cardiac: denies: Chest pain / pressure Respiratory: denies: Cough GI: denies: Abdominal Pain, Vomiting, Diarrhea, Bloody / black stool Neurologic: denies: Focal weakness, Headache, Head injury PD PAST MEDICAL HISTORY - Past Medical History Cardiovascular: Hypertension Respiratory: None Endocrine/Autoimmune: None GI: None : None HEENT: Other Psych: Anxiety Musculoskeletal: None Derm: None - Past Surgical History Past Surgical History: Yes HEENT: Tonsil/Adenoidectomy - Present Medications Home Medications: Ambulatory Orders Medication Instructions Recorded Confirmed Lorazepam [Ativan] 1 mg PO Q6HR PRN #20 tablet 04/20/19 lisinopriL [Lisinopril] 20 mg PO DAILY 07/06/19 07/06/19 Ondansetron Odt [Zofran] 4 mg TL Q6H PRN #10 tablet 09/06/19 LORazepam [Ativan] 1 mg PO Q6H PRN #25 tablet 06/27/20 - Allergies Allergies/Adverse Reactions: Allergies Allergy/AdvReac Type Severity Reaction Status Date / Time paroxetine [From Paxil] Allergy Unknown Verified 03/03/18 22:35 - Living Situation Living Situation: reports: With friend(s) Living Arrangement: reports: At home - Social History Does the pt smoke?: Yes Smoking Status: Never smoker Does the pt drink ETOH?: Yes Does the pt have substance abuse?: No - Immunizations Immunizations: TDAP current <10years - POLST Patient has POLST: No PD ED PE NORMAL - Vitals Vital signs reviewed: Yes - General General: No acute distress, Well developed/nourished. No: Alert and oriented X 3 (rousable to light tactile and verbal. Somnolent otherwise. Smell of alcohol on breath. ) - HEENT HEENT: Atraumatic, Pharynx benign (good gag reflex. ) - Neck Neck: Supple, no meningeal sign, No adenopathy - Cardiac Cardiac: RRR, No murmur - Respiratory Respiratory: Clear bilaterally - Abdomen Abdomen: Soft, Non tender - Derm Derm: Normal color, Warm and dry - Extremities Extremities: No tenderness to palpate, Normal ROM s pain - Neuro Neuro: No motor deficit, No sensory deficit Results - Vitals Vitals: Vital Signs - 24 hr 06/27/20 06/27/20 17:43 19:01 Temperature 37 C Heart Rate 93 83 Respiratory 12 14 Rate Blood Pressure 157/90 H 145/78 H O2 Saturation 99 100 Oxygen O2 Source Room air - Labs Labs: Laboratory Tests 06/27/20 18:30 Sodium 143 Potassium 3.3 L Chloride 101 Carbon Dioxide 26 Anion Gap 16.0 H BUN 9 Creatinine 0.9 Estimated GFR (MDRD) 88 L Glucose 107 H Calcium 8.5 Magnesium 2.1 Total Bilirubin 0.3 AST 25 ALT 23 Alkaline Phosphatase 138 H Total Protein 8.0 Albumin 4.8 Globulin 3.2 Albumin/Globulin Ratio 1.5 Lipase 30 Ethyl Alcohol 342.5 PD MEDICAL DECISION MAKING - ED course Complexity details: re-evaluated patient (Still resting comfortably. Encouraged to try to get a ride home. Still denies any coingestions or self-harm ideation. Normal respirations and vital signs. At this point we should be able to release him as soon as he has a means for getting out safely this evening.), considered differential (Patient was arousable but obviously slurred speech and a bit uncoordinated in movements. He will need to sober a bit. He denied any suicidal ideation. He denied any coingestion with other toxins. He states he does live with someone but did not want to call them.), d/w patient Departure - Departure Disposition: ED [place] Clinical Impression: Alcohol intoxication Qualifiers: Complication of substance-induced condition: uncomplicated Qualified Code(s): F10.920 - Alcohol use, unspecified with intoxication, uncomplicated AMS (altered mental status) Qualifiers: Altered mental status type: stupor Qualified Code(s): R40.1 - Stupor Condition: Stable Record reviewed to determine appropriate education?: Yes Instructions: ED Alcohol Intoxication Prescriptions: LORazepam [Ativan] 1 mg PO Q6H PRN #25 tablet PRN Reason: Alcohol Withdrawal Comments: Avoid excess alcohol. Preferably stop alcohol use. If you were to decide to do that, then you could use the lorazepam I prescribed to help with withdrawal symptoms and use it 1 tablet 2 or 3 times a day to help with withdrawal and taper use over several days to week. Seek help for alcohol cessation through groups or AA. Discharge Date/Time: 06/27/20 20:24
[2020-06-27 18:48] LABS: ALBUMIN 4.8 g/dL (3.2-5.5); ALBUMIN/GLOBULIN RATIO 1.5 (1.0-2.2); BILIRUBIN,TOTAL 0.3 mg/dL (0.2-1.0); CALCIUM 8.5 mg/dL (8.5-10.3); CREATININE 0.9 mg/dL (0.6-1.2); MAGNESIUM 2.1 mg/dL (1.7-2.8)
[2020-06-27 19:01] VITALS: BP 145/78
--- NOTE | 2020-06-27 21:07 | ED Physician Documentation ---
ED Addendum - Addendum Addendum: 06/27/20 21:04 Received sign out from Dr. Davila at end of his shift. This patient was reportedly found outside a [employer] passed out without evidence of injury and found, on ED testing, to have very high blood alcohol (ethanol) level. Plan was to let patient stay in ED until he was sober enough to safely ambulate. Patient eloped early in my shift, although integrated pest management technician tells me that he had just seen patient ambulating to and from bathroom without needing assistance and with steady gait. He left without receiving verbal/written discharge instructions/rx
== END 2020-06-27 20:24 | disposition left against medical advice (07) ==
LOC: EDUNIT# → ED 17:32
DX: F10.920 Alcohol use, unspecified with intoxication, uncomplicated (principal); R40.1 Stupor; I10 Essential (primary) hypertension
CPT/HCPCS: 36415; 80053; 80320; 83690; 83735; 99283; 99284

== ENCOUNTER 2020-12-20 18:46 | Outpatient (CLI) | payer MEDICAID | END 2020-12-20 18:47 | disposition critical access hospital (66) | LOC: EMS 18:46 | PROVIDERS: ATTEND Surgery | DX: R45.851 Suicidal ideations (principal); F10.129 Alcohol abuse with intoxication, unspecified | CPT/HCPCS: A0425; A0429 ==

== ENCOUNTER 2020-12-20 19:05 | Emergency (ER) | payer MEDICAID ==
--- NOTE | 2020-12-20 19:14 | ED Physician Documentation ---
PD HPI MHE - Stated complaint Stated Complaint: SI, ETOH - History obtained from History obtained from: Patient, EMS - Additional information Additional information: 55-year-old gentleman presents by ambulance for intoxication and threats of suicidal ideation. Reportedly drink quite a bit tonight and then made threats that he wanted to kill himself. History is limited on initial evaluation because of intoxication. Much of the history is from paramedics. Review of Systems Unable to obtain: Intoxicated PD PAST MEDICAL HISTORY - Past Medical History Cardiovascular: Hypertension Respiratory: None Endocrine/Autoimmune: None GI: None : None HEENT: Other Psych: Anxiety Musculoskeletal: None Derm: None - Past Surgical History Past Surgical History: Yes HEENT: Tonsil/Adenoidectomy - Present Medications Home Medications: Ambulatory Orders Medication Instructions Recorded Confirmed Lorazepam [Ativan] 1 mg PO Q6HR PRN #20 tablet 04/20/19 lisinopriL [Lisinopril] 20 mg PO DAILY 07/06/19 07/06/19 Ondansetron Odt [Zofran] 4 mg TL Q6H PRN #10 tablet 09/06/19 LORazepam [Ativan] 1 mg PO Q6H PRN #25 tablet 06/27/20 - Allergies Allergies/Adverse Reactions: Allergies Allergy/AdvReac Type Severity Reaction Status Date / Time paroxetine [From Paxil] Allergy Unknown Verified 12/20/20 19:12 - Social History Does the pt smoke?: Yes Smoking Status: Never smoker Does the pt drink ETOH?: Yes Does the pt have substance abuse?: No - Immunizations Immunizations: TDAP current <10years - POLST Patient has POLST: No PD ED PE NORMAL - Vitals Vital signs reviewed: Yes - General General: No acute distress, Other (Slow slurred speech with single word answers, smells of alcohol) - HEENT HEENT: PERRL, EOMI (With nystagmus) - Neck Neck: Supple, no meningeal sign, No bony TTP - Cardiac Cardiac: RRR, No murmur - Respiratory Respiratory: No respiratory distress, Clear bilaterally - Abdomen Abdomen: Soft, Non tender - Back Back: No CVA TTP, No spinal TTP - Derm Derm: Normal color, Warm and dry - Extremities Extremities: No edema, No calf tenderness / cord - Neuro Eye Opening: Spontaneous Motor: Obeys Commands Verbal: Confused GCS Score: 14 Results - Vitals Vitals: Vital Signs - 24 hr 12/20/20 19:12 Temperature 36.8 C Heart Rate 97 Respiratory 19 Rate Blood Pressure 161/106 H O2 Saturation 100 Oxygen O2 Source Room air - Labs Labs: Laboratory Tests 12/20/20 12/20/20 12/20/20 19:19 19:25 19:25 WBC 10.2 RBC 5.33 Hgb 16.4 Hct 48.3 MCV 90.6 MCH 30.8 MCHC 34.0 RDW 13.4 Plt Count 260 MPV 9.8 Neut # (Auto) 7.1 H Lymph # (Auto) 2.1 [place] # (Auto) 0.6 Eos # (Auto) 0.3 Baso # (Auto) 0.1 Absolute Nucleated RBC 0.00 Nucleated RBC % 0.0 Sodium 145 Potassium 3.4 L Chloride 102 Carbon Dioxide 31 Anion Gap 12.0 BUN 10 Creatinine 1.4 H Estimated GFR (MDRD) 53 L Glucose 117 H Calcium 8.8 Total Bilirubin 0.5 AST 22 ALT 22 Alkaline Phosphatase 92 Total Protein 7.8 Albumin 4.6 Globulin 3.2 Albumin/Globulin Ratio 1.4 Lipase 30 TSH Nasal Adenovirus (PCR) NOT DETECTED Nasal B. parapertussis DNA (PCR) NOT DETECTED Nasal Coronavir 229E PCR NOT DETECTED Nasal Coronavir HKU1 PCR NOT DETECTED Nasal Coronavir NL63 PCR NOT DETECTED Nasal Coronavir OC43 PCR NOT DETECTED Nasal Enterovir/Rhinovir PCR NOT DETECTED Nasal Influenza B PCR NOT DETECTED Nasal Influenza A PCR NOT DETECTED Nasal Parainfluen 1 PCR NOT DETECTED Nasal Parainfluen 2 PCR NOT DETECTED Nasal Parainfluen 3 PCR NOT DETECTED Nasal Parainfluen 4 PCR NOT DETECTED Nasal RSV (PCR) NOT DETECTED Nasal B.pertussis DNA PCR NOT DETECTED Nasal C.pneumoniae (PCR) NOT DETECTED Phong Human Metapneumo PCR NOT DETECTED Nasal M.pneumoniae (PCR) NOT DETECTED Nasal SARS-CoV-2 (PCR) NOT DETECTED Salicylates < 6.0 Acetaminophen < 10 L Ethyl Alcohol 346.9 12/20/20 19:25 WBC RBC Hgb Hct MCV MCH MCHC RDW Plt Count MPV Neut # (Auto) Lymph # (Auto) [place] # (Auto) Eos # (Auto) Baso # (Auto) Absolute Nucleated RBC Nucleated RBC % Sodium Potassium Chloride Carbon Dioxide Anion Gap BUN Creatinine Estimated GFR (MDRD) Glucose Calcium Total Bilirubin AST ALT Alkaline Phosphatase Total Protein Albumin Globulin Albumin/Globulin Ratio Lipase TSH 0.53 Nasal Adenovirus (PCR) Nasal B. parapertussis DNA (PCR) Nasal Coronavir 229E PCR Nasal Coronavir HKU1 PCR Nasal Coronavir NL63 PCR Nasal Coronavir OC43 PCR Nasal Enterovir/Rhinovir PCR Nasal Influenza B PCR Nasal Influenza A PCR Nasal Parainfluen 1 PCR Nasal Parainfluen 2 PCR Nasal Parainfluen 3 PCR Nasal Parainfluen 4 PCR Nasal RSV (PCR) Nasal B.pertussis DNA PCR Nasal C.pneumoniae (PCR) Phong Human Metapneumo PCR Nasal M.pneumoniae (PCR) Nasal SARS-CoV-2 (PCR) Salicylates Acetaminophen Ethyl Alcohol PD MEDICAL DECISION MAKING - ED course ED course: 55to M with EtOH intoxication and reported SI threats. Fairly intoxicated on arrival and will need some time to sober up an reeval. Care to overnight ED MD at shift change pending sobering up. Departure - Departure Clinical Impression: Alcohol intoxication Qualifiers: Complication of substance-induced condition: with delirium Qualified Code(s): F10.921 - Alcohol use, unspecified with intoxication delirium Depression Qualifiers: Depression Type: major depressive disorder Major depression recurrence: recurrent Active/Remission status: currently active
[2020-12-20 19:36] LABS: BASOPHILS # (AUTO) 0.1 10^3/uL (0.0-0.1); BASOPHILS % (AUTO) 0.6 %; EOSINOPHILS # (AUTO) 0.3 10^3/uL (0.0-0.7); EOSINOPHILS % (AUTO) 2.6 %; HGB - HEMOGLOBIN 16.4 g/dL (14.0-18.0); LYMPHOCYTES # (AUTO) 2.1 10^3/uL (1.5-3.5); LYMPHOCYTES % (AUTO) 20.8 %; MEAN CORPUSCULAR HEMOGLOBIN 30.8 pg (27.0-31.0); MEAN CORPUSCULAR VOLUME 90.6 fL (80.0-94.0); MEAN PLATELET VOLUME 9.8 fL (7.4-11.4); MONOCYTES # (AUTO) 0.6 10^3/uL (0.0-1.0); MONOCYTES % (AUTO) 5.9 %; NEUTROPHILS # (AUTO) 7.1 10^3/uL (1.5-6.6); NEUTROPHILS % (AUTO) 69.7 %; PLT - PLATELET COUNT 260 10^3/uL (130-450); RED BLOOD COUNT 5.33 10^6/uL (4.70-6.10); RED CELL DISTRIBUTION WIDTH 13.4 % (12.0-15.0); WHITE BLOOD COUNT 10.2 x10^3/uL (4.8-10.8)
[2020-12-20 19:46] LABS: ACETAMINOPHEN < 10 ug/mL (10-30); ALBUMIN 4.6 g/dL (3.2-5.5); ALBUMIN/GLOBULIN RATIO 1.4 (1.0-2.2); ALKALINE PHOSPHATASE 92 IU/L (42-121); ALT ALANINE AMINOTRANSFERASE 22 IU/L (10-60); AST ASPARTATE AMINOTRANSFERASE 22 IU/L (10-42); BILIRUBIN,TOTAL 0.5 mg/dL (0.2-1.0); BUN - BLOOD UREA NITROGEN 10 mg/dL (6-20); CALCIUM 8.8 mg/dL (8.5-10.3); CARBON DIOXIDE - CO2 31 mmol/L (21-32); CHLORIDE 102 mmol/L (101-111); CREATININE 1.4 mg/dL (0.6-1.2); GLUCOSE 117 mg/dL (70-100); LIPASE 30 U/L (22-51); SALICYLATE < 6.0 mg/dL; TOTAL PROTEIN 7.8 g/dL (6.7-8.2)
[2020-12-20 20:35] LABS: C. PNEUMONIAE- RESP PCR PANEL NOT DETECTED
[2020-12-20] MEDS ORDERED: LORazepam 1 MG TABLET PO STA (23:48)
--- NOTE | 2020-12-21 00:04 | ED Physician Documentation ---
ED Addendum - Addendum Addendum: 12/21/20 00:01 The patient is now awake and conversant. He likely still has a fairly elevated alcohol level but is talking clearly. He is feeling a little bit anxious but is not having any shaking or tachycardia. He is asking for an AA product support sales representative to talk to. He does not have an a product support sales representative or sponsor himself to call. I told him we did not have any on- call or available per se. He would like to talk with the social work coordinator. He is not feeling that hospitalization is needed as I did offer a crisis center. At this point he declines those. When asked if he is feeling suicidal, he said he did not have a plan but was not real affirmative when denying suicidal ideation. At this point I feel he needs to stay in the ER for a longer period of time and be reassessed. I explained this to him and he understood and stated he would be willing to sleep in the ER overnight. At that point we can have social work talk to him in the morning. He is given Ativan PO to help with anxiety and likely some mild early withdrawal.
[2020-12-21 05:24] LABS: MUDS CUTOFF CONCENTRATIONS CUTOFF CONC BELOW:
[2020-12-21 05:27] LABS: BILIRUBIN,URINE NEGATIVE (NEGATIVE); GLUCOSE, URINE (UA) NEGATIVE (NEGATIVE); KETONES,URINE (UA) NEGATIVE (NEGATIVE); LEUKOCYTE ESTERASE, URINE NEGATIVE (NEGATIVE); NITRITE,URINE NEGATIVE (NEGATIVE); OCCULT BLOOD,URINE MODERATE (NEGATIVE); PH,URINE 5.5 PH (5.0-7.5); PROTEIN,URINE 100 mg/dL (NEGATIVE); UROBILINOGEN,URINE 0.2 (NORMAL) E.U./dL (NORMAL)
[2020-12-21 05:28] LABS: CLARITY,URINE CLEAR (CLEAR)
[2020-12-21 05:35] LABS: BACTERIA,URINE Rare /HPF (None Seen); MUCUS,URINE Marked Strands; RBC,URINE 0-5 /HPF (0-5); SQUAMOUS EPITHELIAL CELL,UR RARE Squamous (<= Few)
[2020-12-21 05:37] LABS: AMPHETAMINE SCREEN,URINE NEGATIVE (NEGATIVE); BENZODIAZEPINES SCREEN, URINE POSITIVE (NEGATIVE); COCAINE SCREEN URINE NEGATIVE (NEGATIVE); METHADONE SCREEN, URINE NEGATIVE (NEGATIVE); METHAMPHETAMINES SCREEN, URINE NEGATIVE (NEGATIVE); OPIATE SCREEN, URINE NEGATIVE (NEGATIVE); OXYCODONE SCREEN, URINE NEGATIVE (NEGATIVE); PROPOXYPHENE SCREEN, URINE NEGATIVE (NEGATIVE); TRICYCLIC ANTIDEPRESSANT,URINE NEGATIVE (NEGATIVE)
[2020-12-21 09:12] VITALS: BP 133/85
== END 2020-12-21 09:05 | disposition home or self-care (01) ==
LOC: EDBD → EDUNIT# → ED 19:05
DX: F10.229 Alcohol dependence with intoxication, unspecified (principal); F32.9 Major depressive disorder, single episode, unspecified; R45.851 Suicidal ideations; Z20.822 Contact with and (suspected) exposure to COVID-19
CPT/HCPCS: 0202U; 36415; 80306; 80320; 80329; 81001; 83690; 99281; 99283; J8499; 80053; 80307; 81003; 84443; 85025; 87086

== ENCOUNTER 2021-09-11 19:08 | Outpatient (CLI) | payer MEDICAID | END 2021-09-11 19:09 | disposition critical access hospital (66) | LOC: EMS 19:08 | DX: R40.4 Transient alteration of awareness (principal) | CPT/HCPCS: A0425; A0427; A0999 ==

== ENCOUNTER 2021-09-11 19:25 | Emergency (ER) | payer MEDICAID, OTHER ==
--- NOTE | 2021-09-11 19:39 | ED Physician Documentation ---
History of Present Illness - Stated complaint Stated Complaint: AMS - Chief complaint Chief Complaint: Neuro - History obtained from History obtained from: EMS - Additonal information Additional information: 56yM with pmh depression, suicidality, alcohol abuse, p/w unresponsiveness. patient was found by ems on ground outside ex's house smelling of alcohol with a red line around the front of his neck. fingerstick 80 in the field. patient tearful, eye opening spontaneously, not talking to EMS en route. moving all extremities spontaneously. no visible trauma. on arrival, patient is able to tell me his name "Reed" but is not speaking otherwise. further history limited by patient's nonverbal status. Review of Systems Unable to obtain: Intoxicated PD PAST MEDICAL HISTORY - Past Medical History Cardiovascular: Hypertension Respiratory: None Endocrine/Autoimmune: None GI: None : None HEENT: Other Psych: Anxiety Musculoskeletal: None Derm: None - Past Surgical History Past Surgical History: Yes HEENT: Tonsil/Adenoidectomy - Present Medications Home Medications: Ambulatory Orders Medication Instructions Recorded Confirmed Lorazepam [Ativan] 1 mg PO Q6HR PRN #20 tablet 04/20/19 lisinopriL [Lisinopril] 20 mg PO DAILY 07/06/19 07/06/19 Ondansetron Odt [Zofran] 4 mg TL Q6H PRN #10 tablet 09/06/19 LORazepam [Ativan] 1 mg PO Q6H PRN #25 tablet 06/27/20 LORazepam [Ativan] 1 mg PO Q6H PRN #20 tablet 09/12/21 Ondansetron Odt [Zofran] 4 mg TL Q6H PRN #10 tablet 09/12/21 - Allergies Allergies/Adverse Reactions: Allergies Allergy/AdvReac Type Severity Reaction Status Date / Time paroxetine [From Paxil] Allergy Unknown Verified 12/20/20 19:12 - Social History Does the pt smoke?: Yes Smoking Status: Never smoker Does the pt drink ETOH?: Yes Does the pt have substance abuse?: No - Immunizations Immunizations: TDAP current <10years - POLST Patient has POLST: No PD ED PE NORMAL - Vitals Vital signs reviewed: Yes - General General: No acute distress, Well developed/nourished, Other (AOX1, otherwise noncompliant with history/exam) - HEENT HEENT: Atraumatic, PERRL, EOMI - Neck Neck: Supple, no meningeal sign - Cardiac Cardiac: RRR - Respiratory Respiratory: No respiratory distress, Clear bilaterally - Abdomen Abdomen: Non tender, Non distended - Derm Derm: Normal color, Warm and dry - Extremities Extremities: No deformity - Neuro Neuro: Other (intoxicated) - Psych Psych: Other (intoxicated) Results - Vitals Vitals: Vital Signs - 24 hr 09/12/21 08:43 Temperature 36.7 C Heart Rate 76 Respiratory 17 Rate Blood Pressure 155/84 H O2 Saturation 99 Oxygen O2 Source Room air - EKG (time done) 1940 Rate: Rate (enter#) (88) Rhythm: NSR [place]: Normal Intervals: Normal SD QRS: Normal Ischemia: Other (LVH) - Labs Labs: Laboratory Tests 09/11/21 09/11/21 09/11/21 19:44 19:44 19:44 WBC 7.6 RBC 4.94 Hgb 15.2 Hct 46.0 MCV 93.1 MCH 30.8 MCHC 33.0 RDW 13.2 Plt Count 267 MPV 9.9 Neut # (Auto) 3.4 Lymph # (Auto) 3.1 Edwards # (Auto) 0.4 Eos # (Auto) 0.5 Baso # (Auto) 0.1 Absolute Nucleated RBC 0.00 Nucleated RBC % 0.0 Sodium 144 Potassium 3.9 Chloride 106 Carbon Dioxide 28 Anion Gap 10.0 BUN 13 Creatinine 1.3 H Estimated GFR (MDRD) 57 L Glucose 98 Calcium 8.4 L Total Bilirubin 0.4 AST 21 ALT 20 Alkaline Phosphatase 82 Total Protein 7.3 Albumin 4.4 Globulin 2.9 Albumin/Globulin Ratio 1.5 Lipase 47 TSH 0.51 Urine Color Urine Clarity Urine pH Ur Specific Holderness Urine Protein Urine Glucose (UA) Urine Ketones Urine Occult Blood Urine Nitrite Urine Bilirubin Urine Urobilinogen Ur Leukocyte Esterase Urine RBC Urine WBC Ur Squamous Epith Cells Urine Bacteria Ur Microscopic Review Urine Culture Comments Nasal Adenovirus (PCR) Nasal B. parapertussis DNA (PCR) Nasal Coronavir 229E PCR Nasal Coronavir HKU1 PCR Nasal Coronavir NL63 PCR Nasal Coronavir OC43 PCR Nasal Enterovir/Rhinovir PCR Nasal Influenza B PCR Nasal Influenza A PCR Nasal Parainfluen 1 PCR Nasal Parainfluen 2 PCR Nasal Parainfluen 3 PCR Nasal Parainfluen 4 PCR Nasal RSV (PCR) Nasal B.pertussis DNA PCR Nasal C.pneumoniae (PCR) Phong Human Metapneumo PCR Nasal M.pneumoniae (PCR) Nasal SARS-CoV-2 (PCR) Salicylates < 6.0 Urine Opiates Screen Ur Oxycodone Screen Urine Methadone Screen Ur Propoxyphene Screen Acetaminophen < 10 L Ur Barbiturates Screen Ur Tricyclics Screen Ur Phencyclidine Scrn Ur Amphetamine Screen U Methamphetamines Scrn U Benzodiazepines Scrn Urine Cocaine Screen U Cannabinoids Screen Ethyl Alcohol 356.2 09/11/21 09/11/21 19:44 19:51 WBC RBC Hgb Hct MCV MCH MCHC RDW Plt Count MPV Neut # (Auto) Lymph # (Auto) Edwards # (Auto) Eos # (Auto) Baso # (Auto) Absolute Nucleated RBC Nucleated RBC % Sodium Potassium Chloride Carbon Dioxide Anion Gap BUN Creatinine Estimated GFR (MDRD) Glucose Calcium Total Bilirubin AST ALT Alkaline Phosphatase Total Protein Albumin Globulin Albumin/Globulin Ratio Lipase TSH Urine Color YELLOW Urine Clarity CLEAR Urine pH 5.0 Ur Specific Holderness <=1.005 Urine Protein NEGATIVE Urine Glucose (UA) NEGATIVE Urine Ketones NEGATIVE Urine Occult Blood SMALL H Urine Nitrite NEGATIVE Urine Bilirubin NEGATIVE Urine Urobilinogen 0.2 (NORMAL) Ur Leukocyte Esterase NEGATIVE Urine RBC None Seen Urine WBC 0-3 Ur Squamous Epith Cells NONE SEEN Urine Bacteria None Seen Ur Microscopic Review INDICATED Urine Culture Comments NOT INDICATED Nasal Adenovirus (PCR) NOT DETECTED Nasal B. parapertussis DNA (PCR) NOT DETECTED Nasal Coronavir 229E PCR NOT DETECTED Nasal Coronavir HKU1 PCR NOT DETECTED Nasal Coronavir NL63 PCR NOT DETECTED Nasal Coronavir OC43 PCR NOT DETECTED Nasal Enterovir/Rhinovir PCR NOT DETECTED Nasal Influenza B PCR NOT DETECTED Nasal Influenza A PCR NOT DETECTED Nasal Parainfluen 1 PCR NOT DETECTED Nasal Parainfluen 2 PCR NOT DETECTED Nasal Parainfluen 3 PCR NOT DETECTED Nasal Parainfluen 4 PCR NOT DETECTED Nasal RSV (PCR) NOT DETECTED Nasal B.pertussis DNA PCR NOT DETECTED Nasal C.pneumoniae (PCR) NOT DETECTED Phong Human Metapneumo PCR NOT DETECTED Nasal M.pneumoniae (PCR) NOT DETECTED Nasal SARS-CoV-2 (PCR) NOT DETECTED Salicylates Urine Opiates Screen NEGATIVE Ur Oxycodone Screen NEGATIVE Urine Methadone Screen NEGATIVE Ur Propoxyphene Screen NEGATIVE Acetaminophen Ur Barbiturates Screen NEGATIVE Ur Tricyclics Screen NEGATIVE Ur Phencyclidine Scrn NEGATIVE Ur Amphetamine Screen NEGATIVE U Methamphetamines Scrn NEGATIVE U Benzodiazepines Scrn NEGATIVE Urine Cocaine Screen NEGATIVE U Cannabinoids Screen NEGATIVE Ethyl Alcohol PD MEDICAL DECISION MAKING - ED course ED course: patient resting comfortably overnight. not endorsing any SI to any of staff or myself. Still intoxicated at shift change. Patient endorsed to Dr. Davila, daytime Departure - Departure Disposition: 01 Home, Self Care Clinical Impression: Alcohol intoxication, Alcoholism, Chronic depression, Reactive depression (situational) Condition: Stable Instructions: ED Depression Prescriptions: LORazepam [Ativan] 1 mg PO Q6H PRN #20 tablet PRN Reason: Alcohol Withdrawal Ondansetron Odt [Zofran] 4 mg TL Q6H PRN #10 tablet PRN Reason: Nausea / Vomiting Comments: Avoid excess alcohol and preferably all alcohol. Seek medical help for detox. Refer to the resources provided by the social work lecturer. Use the Ativan as needed for withdrawal symptoms. I provided prescription for Ativan as well as a nausea medicine called ondansetron. I ftransmitted those prescriptions to the [facility] in [place]. Stay well-hydrated. Follow-up with counseling and detox treatment if even outpatient such as counseling and AA and supportive friends. Discharge Date/Time: 09/12/21 09:00
[2021-09-11] MEDS ORDERED: THIAMINE INJ 100 MG, MAGNESIUM SULFATE 2 GM, MULTIVITAMIN 10 ML in SODIUM CHLORIDE 0.9%... IM ONE ×2 (19:40→20:18)
[2021-09-11 19:52] LABS: BASOPHILS # (AUTO) 0.1 10^3/uL (0.0-0.1); BASOPHILS % (AUTO) 0.9 %; EOSINOPHILS # (AUTO) 0.5 10^3/uL (0.0-0.7); EOSINOPHILS % (AUTO) 6.2 %; HGB - HEMOGLOBIN 15.2 g/dL (14.0-18.0); LYMPHOCYTES # (AUTO) 3.1 10^3/uL (1.5-3.5); LYMPHOCYTES % (AUTO) 41.5 %; MEAN CORPUSCULAR HEMOGLOBIN 30.8 pg (27.0-31.0); MEAN CORPUSCULAR VOLUME 93.1 fL (80.0-94.0); MEAN PLATELET VOLUME 9.9 fL (7.4-11.4); MONOCYTES # (AUTO) 0.4 10^3/uL (0.0-1.0); MONOCYTES % (AUTO) 5.3 %; NEUTROPHILS # (AUTO) 3.4 10^3/uL (1.5-6.6); NEUTROPHILS % (AUTO) 45.4 %; PLT - PLATELET COUNT 267 10^3/uL (130-450); RED BLOOD COUNT 4.94 10^6/uL (4.70-6.10); RED CELL DISTRIBUTION WIDTH 13.2 % (12.0-15.0); WHITE BLOOD COUNT 7.6 x10^3/uL (4.8-10.8)
[2021-09-11 20:02] LABS: MUDS CUTOFF CONCENTRATIONS CUTOFF CONC BELOW:
[2021-09-11] MEDS ORDERED: MAGNESIUM SULFATE 1 GM/2 ML VIAL ONE (20:05)
[2021-09-11] MEDS ORDERED: THIAMINE 100 MG/1 ML 2 ML MDV ONE (20:05)
[2021-09-11 20:08] LABS: ACETAMINOPHEN < 10 ug/mL (10-30); ALBUMIN 4.4 g/dL (3.2-5.5); ALBUMIN/GLOBULIN RATIO 1.5 (1.0-2.2); ALKALINE PHOSPHATASE 82 IU/L (42-121); ALT ALANINE AMINOTRANSFERASE 20 IU/L (10-60); AST ASPARTATE AMINOTRANSFERASE 21 IU/L (10-42); BILIRUBIN,TOTAL 0.4 mg/dL (0.2-1.0); BUN - BLOOD UREA NITROGEN 13 mg/dL (6-20); CALCIUM 8.4 mg/dL (8.5-10.3); CARBON DIOXIDE - CO2 28 mmol/L (21-32); CHLORIDE 106 mmol/L (101-111); CREATININE 1.3 mg/dL (0.6-1.2); ETOH - ETHANOL 356.2 mg/dL; GFR - MDRD 57 (>89); GLUCOSE 98 mg/dL (70-100); LIPASE 47 U/L (22-51); POTASSIUM 3.9 mmol/L (3.5-5.0); SALICYLATE < 6.0 mg/dL; SODIUM 144 mmol/L (135-145); TOTAL PROTEIN 7.3 g/dL (6.7-8.2)
[2021-09-11 20:08] LABS: BILIRUBIN,URINE NEGATIVE (NEGATIVE); GLUCOSE, URINE (UA) NEGATIVE (NEGATIVE); KETONES,URINE (UA) NEGATIVE (NEGATIVE); LEUKOCYTE ESTERASE, URINE NEGATIVE (NEGATIVE); NITRITE,URINE NEGATIVE (NEGATIVE); OCCULT BLOOD,URINE SMALL (NEGATIVE); PROTEIN,URINE NEGATIVE (NEGATIVE); UROBILINOGEN,URINE 0.2 (NORMAL) E.U./dL (NORMAL)
[2021-09-11 20:18] LABS: AMPHETAMINE SCREEN,URINE NEGATIVE (NEGATIVE); BARBITURATE SCREEN,UR NEGATIVE (NEGATIVE); BENZODIAZEPINES SCREEN, URINE NEGATIVE (NEGATIVE); COCAINE SCREEN URINE NEGATIVE (NEGATIVE); METHADONE SCREEN, URINE NEGATIVE (NEGATIVE); METHAMPHETAMINES SCREEN, URINE NEGATIVE (NEGATIVE); OPIATE SCREEN, URINE NEGATIVE (NEGATIVE); OXYCODONE SCREEN, URINE NEGATIVE (NEGATIVE); PROPOXYPHENE SCREEN, URINE NEGATIVE (NEGATIVE); THC CANNABINOID SCREEN, URINE NEGATIVE (NEGATIVE); TRICYCLIC ANTIDEPRESSANT,URINE NEGATIVE (NEGATIVE)
[2021-09-11 20:28] LABS: CLARITY,URINE CLEAR (CLEAR)
[2021-09-11 20:29] LABS: BACTERIA,URINE None Seen /HPF (None Seen); RBC,URINE None Seen /HPF (0-5); SQUAMOUS EPITHELIAL CELL,UR NONE SEEN (<= Few); WBC,URINE 0-3 /HPF (0-3)
--- NOTE | 2021-09-11 20:45 | CT Report ---
PROCEDURE: HEAD WO INDICATIONS: AMS, +etoh TECHNIQUE: Noncontrast 5 mm thick angled axial sections acquired from the foramen magnum to the vertex. For rad iation dose reduction, the following was used: automated exposure control, adjustment of mA and/or k V according to patient size. COMPARISON: CT head 04/19/2019. FINDINGS: Image quality: There is motion artifact limiting evaluation. CSF spaces: Basal cisterns are patent. No extra-axial fluid collections. Ventricles are unchanged in size and shape. Brain: No definite intracranial hemorrhage, mass, or mass effect. Barker-white matter interface appear s preserved. Skull and face: Calvarium and visualized facial bones are intact, without suspicious lesions. There is a calcified subcutaneous nodule in the posterior scalp redemonstrated compatible with a sebaceous cyst. Sinuses: Visualized sinuses demonstrate moderate mucosal thickening within the maxillary sinuses rubens aterally. There is also mild mucosal thickening within the frontal, ethmoid, and sphenoid sinuses. Th ere are sinus retention cysts or mucosal polyps within the maxillary and right frontal sinuses. The m astoid air cells are clear. IMPRESSION: 1. No definite acute intracranial abnormality, with evaluation limited by motion artifact. 2. Bilateral sinus mucosal disease including moderate mucosal thickening in the maxillary sinuses. Reviewed by: Sp Garcia MD on 09/11/2021 8:44 PM PDT Approved by: Sp Garcia MD on 09/11/2021 8:44 PM PDT Station ID: [id number]
[2021-09-11 20:56] LABS: B. PARAPERTUSSIS- RESP PCR PAN NOT DETECTED; B. PERTUSSIS- RESP PCR PANEL NOT DETECTED; C. PNEUMONIAE- RESP PCR PANEL NOT DETECTED; CORONAVIRUS 229E-RESP PCR NOT DETECTED; CORONAVIRUS HKU1-RESP PCR NOT DETECTED; CORONAVIRUS NL63-RESP PCR NOT DETECTED; CORONAVIRUS OC43-RESP PCR NOT DETECTED; HUMAN METAPNEUMOVIRUS NOT DETECTED; INFLUENZA A- RESP PCR PANEL NOT DETECTED; INFLUENZA B - RESP PCR PANEL NOT DETECTED; M. PNEUMONIAE- RESP PCR PANEL NOT DETECTED; PARAINFLUENZA VIRUS 1 NOT DETECTED; PARAINFLUENZA VIRUS 2 NOT DETECTED; PARAINFLUENZA VIRUS 3 NOT DETECTED; PARAINFLUENZA VIRUS 4 NOT DETECTED; RHINOVIRUS/ENTEROVIRUS NOT DETECTED; RSV- RESP PCR PANEL NOT DETECTED; SARS-CoV-2 -RESP PCR PANEL NOT DETECTED
--- NOTE | 2021-09-12 08:21 | ED Physician Documentation ---
ED Addendum - Addendum Addendum: 09/12/21 08:19And awakens this morning and is not remembering really much of the events last night. He remembers drinking heavily. He states he does not regularly. He had been feeling depressed lately. He denies suicidality. He had broken up with his girlfriend recently. He suffers long-term depression with the alcoholism and prior family issues including a son who committed suicide at age 17. He does not currently have any counseling. He has both parents alive, his mother lives in [place] I believe he said. He grew up in [facility]. His other son lives in [place]. He is interested in detox potentially but not today. fabric worker leader gave resources for some of the detox facilities as well as counseling in the crisis line. The patient's longer-term goals are to either move to [place] or [place] to be with his son or mother. Chronic depression and alcoholism Acute alcohol intoxication Disposition: The patient is discharged in stable condition.
[2021-09-12 08:44] VITALS: BP 155/84
== END 2021-09-12 09:00 | disposition home or self-care (01) ==
LOC: EDUNIT# → ED 19:25
DX: F43.21 Adjustment disorder with depressed mood (principal); F32.A Depression, unspecified; F10.129 Alcohol abuse with intoxication, unspecified; Z20.822 Contact with and (suspected) exposure to COVID-19
CPT/HCPCS: 0202U; 36415; 51701; 70450; 80053; 80306; 80307; 80320; 80329; 81001; 83690; 84443; 85025; 93005; 99283; 99284; J3411; 81003; 87086